=== PATIENT | male | born 1980 | race Caucasian/White ===

== ENCOUNTER 2023-07-28 11:48 | Outpatient (OUT) | payer OTHER, SELFPAY ==
--- NOTE | 2023-07-28 11:59 | XR_ITS ---
[address] [address] Patient Name: MAXIMILIANO GABRIEL MRN: [id number] date: 1980 Sex: M Assigned Patient Location: [facility] Current Patient Location: [facility] Accession/Order Number: [id number] Exam Date: 07/28/2023 12:00 Report Date: 07/28/2023 12:58 At the request of: DIVYA RICHARDSON Procedure: XR lumbar spine 2-3V EXAM: XR lumbar spine 2-3V HISTORY: Lumbar radiculitis M54.16 COMPARISON: None. TECHNIQUE: 2 views FINDINGS: Satisfactory alignment. Maintained vertebral body heights and disc spaces. No acute fracture or subluxation. Unremarkable soft tissues. XR/XR lumbar spine 2-3V IMPRESSION: Unremarkable exam. Electronically authenticated by: HUMAIRA CISNEROS Date: 07/28/2023 12:58
== END 2023-07-28 11:49 | disposition home or self-care (01) ==
PROVIDERS: PCP Family Medicine; Visit Provider Family Medicine
DX: M54.16 Radiculopathy, lumbar region (principal)
CPT/HCPCS: 72100

== ENCOUNTER 2023-08-03 19:23 | Emergency (ER) | payer OTHER, SELFPAY ==
[2023-08-03 19:33] VITALS: BP 136/99; PULSE 80; RESP 20; TEMP 36.8; O2SAT 96; BMI 40.7
--- NOTE | 2023-08-03 19:50 | PC.NURSE ---
left hip pain started approx 2 wks ago and has been seeing PCP for this but tonight pain is getting worse. denies injury and ambulates to room without difficulty
--- NOTE | 2023-08-03 19:58 | XR_ITS ---
The [address] [address] Patient Name: MAXIMILIANO GABRIEL MRN: [id number] date: 1980 Sex: M Assigned Patient Location: ER Current Patient Location: ER Accession/Order Number: [id number] Exam Date: 08/03/2023 20:44 Report Date: 08/03/2023 21:08 At the request of: KELLY CASTRO Procedure: XR hip LT 2V w/ pelvis EXAM: XR hip LT 2V w/ pelvis HISTORY: Lumbar radiculopathy, left hip pain COMPARISON: None. TECHNIQUE: AP pelvis and 2 views of the left hip FINDINGS: No fracture, dislocation, subluxation or osseous lesion. Joint spaces are normal. XR/XR hip LT 2V w/ pelvis IMPRESSION: No visualized abnormality Electronically authenticated by: MARIAMA SALGADO Date: 08/03/2023 21:08
--- NOTE | 2023-08-03 19:58 | CT_ITS ---
The [address] [address] Patient Name: MAXIMILIANO GABRIEL MRN: [id number] date: 1980 Sex: M Assigned Patient Location: ER Current Patient Location: ER Accession/Order Number: [id number] Exam Date: 08/03/2023 20:42 Report Date: 08/03/2023 21:08 At the request of: KELLY CASTRO Procedure: CT lumbar spine wo con EXAM: CT lumbar spine wo con HISTORY: lumbar radiculopathy COMPARISON: Lumbar spine x-rays 07/28/2023 TECHNIQUE: Axial CT imaging was performed. Sagittal and coronal reformatted/reconstructed sequences were additionally performed. FINDINGS: IMPRESSION: Maintenance of the normal lumbar lordosis. Vertebral body heights and alignments exhibit no fracture or listhesis. No prevertebral soft tissue edema. Intervertebral disc space heights are unremarkable for patient's age. Asymmetric L5-S1 annular bulge appears most pronounced extending from left paracentral to left far lateral. The superficial subcutaneous soft tissues are unremarkable. No visualized gross intra-abdominal abnormality. Visualized lung bases are unremarkable. Electronically authenticated by: MARIAMA SALGADO Date: 08/03/2023 21:08
--- NOTE | 2023-08-03 19:59 | ED.GENADUL1 ---
HPI - General Adult General Chief complaint: Extremity Injury, Lower Stated complaint: HIP PAIN RADIATING Time Seen by Provider: 08/03/23 19:48 Source: patient Mode of arrival: walk-in Limitations: no limitations History of Present Illness HPI narrative: patient is a 43-year-old male who presents to the emergency department for the evaluation of pain in the left posterior and lateral hip radiating into the left leg. He states he has had ongoing issues for several weeks. He was seen by his PCP who prescribed him anti-inflammatories and muscle relaxants. He has not had a dose of the Zanaflex since last night. He states he had outpatient x-rays of the low back last week as he was having low back pain. He states now the pain is in the hip with radiation to the leg and he has had tingling of the left hip as well as numbness of the left anterior fofana. He is able to ambulate. He has had no urinary or bowel incontinence. He denies any falls or direct injury to the area. Related Data Home Medications Medication Instructions Recorded Confirmed diclofenac sodium 75 mg 75 mg PO Q12H 08/03/23 08/03/23 tablet,delayed release tizanidine 4 mg capsule (Zanaflex) 4 mg PO BID PRN muscle spasticity 08/03/23 08/03/23 Previous Rx's Medication Instructions Recorded methocarbamol 750 mg tablet 750 mg PO TID PRN pain #20 tabs 08/03/23 methylprednisolone 4 mg tablets in See Rx Instructions .Route 08/03/23 a dose pack (Medrol (Dl)) .COMPLEX #21 ea oxycodone-acetaminophen 5 mg-325 1 tab PO Q6H PRN pain #12 tabs 08/03/23 mg tablet (Percocet) Allergies Allergy/AdvReac Type Severity Reaction Status Date / Time Sulfa (Sulfonamide Allergy Hives Verified 08/03/23 19:40 Antibiotics) Review of Systems ROS Constitutional Denies: fever or chills Respiratory Denies: shortness of breath Gastrointestinal Denies: abdominal pain, nausea or vomiting Musculoskeletal Reports: back pain and extremity pain; Denies: neck pain Integumentary/Breast Denies: rash Neurological Denies: headache Hematologic/Lymphatic Denies: easy bruising Allergic/Immunologic Denies: hives PFSH PFSH Social History Smoking status: Former smoker Exam Narrative Exam Narrative: Gen.: Awake, alert, in no distress Head: Normocephalic, atraumatic ENT: Moist mucous membranes Respiratory: No respiratory distress Extremities: Moves extremities equally, no injuries noted; normal dorsiflexion and plantarflexion of the lower extremities, no decrease in sensation to the medial thighs; no bony point tenderness of the T-spine or L-spine with diffuse tenderness of the left posterior and lateral hip. No internal or external rotation Psych: Normal mood and affect Neuro: No focal neuro deficit Skin: Warm, dry, intact Constitutional Vital Signs, click to edit/add: Last Vital Signs Temp 98.2 F 08/03/23 19:33 Pulse 80 08/03/23 19:33 Resp 20 08/03/23 19:33 BP 136/99 H 08/03/23 19:33 Pulse Ox 96 08/03/23 19:33 O2 Del Method Room Air 08/03/23 19:53 Course Vital Signs Vital signs: Vital Signs Temperature 98.2 F 08/03/23 19:33 Pulse Rate 80 08/03/23 19:33 Respiratory Rate 20 08/03/23 19:33 Blood Pressure 136/99 H 08/03/23 19:33 Pulse Oximetry 96 08/03/23 19:33 Temperature 98.2 F 08/03/23 19:33 Pulse Rate 80 08/03/23 19:33 Respiratory Rate 20 08/03/23 19:33 Blood Pressure 136/99 H 08/03/23 19:33 Pulse Oximetry 96 08/03/23 19:33 Oxygen Delivery Method Room Air 08/03/23 19:53 Medical Decision Making MDM Narrative Medical decision making narrative: x-rays of the left hip and pelvis are unremarkable per the radiologist. A CT of the lumbar spine was also performed as the patient is having lumbar radiculopathy. He is ambulatory, no decrease in sensation between the medial thighs with normal dorsiflexion and plantarflexion of the lower extremities. CT of the lumbar spine shows a patient has asymmetric disc bulging at L5/S1 which is likely contributing to his symptoms. There is no acute abnormality noted on the CT. Patient is neurovascularly intact with a normal neuro exam at discharge. He'll be medicated for symptoms, encouraged follow-up for physical therapy and follow closely with his PCP. Return to the Emergency Room if symptoms change or worsen Medical Records Medical records reviewed: Yes I reviewed the patient's medical records Discharge Plan Discharge Chief Complaint: Extremity Injury, Lower Clinical Impression: Acute left lumbar radiculopathy, Acute pain of left hip Patient Disposition: Home, Self-Care Time of Disposition Decision: 21:39 Condition: Good Prescriptions / Home Meds: New oxycodone-acetaminophen [Percocet] 5-325 mg tablet 1 tab PO Q6H PRN (Reason: pain) Qty: 12 0RF Rx Instructions: DX: M54.5 methocarbamol 750 mg tablet 750 mg PO TID PRN (Reason: pain) Qty: 20 0RF methylprednisolone [Medrol (Dl)] 4 mg tablets,dose pack See Rx Instructions .ROUTE .COMPLEX Qty: 21 0RF Rx Instructions: Taper as directed No Action diclofenac sodium 75 mg tablet,delayed release (DR/EC) 75 mg PO Q12H tizanidine [Zanaflex] 4 mg capsule 4 mg PO BID PRN (Reason: muscle spasticity) Instructions: Lumbar Radiculopathy (ED), Hip Pain (ED) Stand Alone Forms: Portal Instructions Referrals: Anil Meehan MD [Primary Care Provider] - 1 week Discharge Date/Time: 08/03/23 22:04
[2023-08-03] MEDS: ORPHENADRINE 60 MG/ 2 ML VIAL IM (20:31)
[2023-08-03] MEDS: KETOROLAC TROMETHAMINE 60 MG/2 ML VIAL IM (20:32)
[2023-08-03] MEDS: OXYCODONE HCL/ACETAMINOPHEN 5MG/325MG 1 TAB PO (20:32)
[2023-08-03] MEDS: OXYCODONE HCL/ACETAMINOPHEN 5MG/325MG 2 TAB PO (21:55)
== END 2023-08-03 22:04 | disposition home or self-care (01) ==
PROVIDERS: Emergency Provider Internal Medicine; PCP Family Medicine
DX: M54.16 Radiculopathy, lumbar region (principal); M25.552 Pain in left hip; Z79.899 Other long term (current) drug therapy; Z87.891 Personal history of nicotine dependence
CPT/HCPCS: 72131; 73502; 96372; 99285

== ENCOUNTER 2023-08-10 06:48 | Outpatient (RCR) | payer OTHER, SELFPAY | END 2023-09-18 15:11 | disposition home or self-care (01) | LOC: PT 06:48 | PROVIDERS: PCP Family Medicine; Visit Provider Family Medicine | DX: M54.16 Radiculopathy, lumbar region (principal) | CPT/HCPCS: 97110; 97161 ==

== ENCOUNTER 2023-12-01 12:12 | Outpatient (OUT) | payer OTHER, SELFPAY ==
--- OUTSIDE RECORDS SUMMARY | 2023-12-01 12:14 | XMS_ITS | CCD ---
Author Name Unknown Address [address] [facility] [place] [address] Organization [facility] Care Team Providers Care Automatic Engraver Name Role Phone Lelia Rouse APRN, CNP Primary Care Prov ider LELIA RIVAS Primary Care Physician Juan Antonio Joya DO Primary Care Provider [phone] LIAM RIVERA Referring Unavailable LIAM RIVERA Primary Care Unavailable LIAM RIVERA Primary Care Unavailable LIAM RIVERA Referring Unavailable JUAN ANTONIO JOYA Primary Care Unavailable NATHALIE FROST Attending Unavailable LELIA RIVAS Primary Care Unavailable VANI ROSA Admitting Unavailable VANI ROSA Attending Unavailable LIAM RIVERA Referring Unavailable DIVYA RICHARDSON Primary Care Unavailable LIAM RIVERA Attending Unavailable LIAM RIVERA Referring Unavailable LIAM RIVERA Primary Care Unavailable Allergies Allergy Classification Reported Allergen(s) Allergy Type Date of Onset Reaction(s) Facility (2 sources) Sulfonamides (Antibiotic) Propensity to adverse reactions to drug 8 [facility] (2 sources) Sulfonamides (Antibiotic); Translations: [sulfa drugs] Drug allergy Unknown (qualifier value) [facility] Medications Current Medications Medication Drug Class(es) Dates Sig (Normalized) Sig (Original) ciprofloxacin 500 mg oral tablet (2 sources) Quinolone Antimicrobial Start: 06-23-2022 take 1 tablet by mouth twice daily Cipro 500 mg Tab 500 mg = 1 tab(s), Oral, BID, # 10 tab(s), Refills(s) 0, Pharmacy: [id number], 184, cm, 06/23/22 10:35:00 EDT, Height/Length Dosing, 144, kg, 06/23/22 10:35:00 EDT, Weight Dosing Start Date: 06/23/22 Status: Ordered Multiple Vitamins-Minerals (MULTIVITAMIN ADULT PO) (2 sources) Multiple Vitamins-Minerals (MULTIVITAMIN ADULT PO) Take by mouth daily 0 Active Multivitamin preparation (2 sources) Start: 06-23-2022 multivitamin Daily, Refill(s) 0 Start Date: 06/23/22 Status: Ordered Problems Active Problems Problem Classification Problem Date Documented Date Episodic/Chronic Contraceptive and procreative management (1 source) Contraception status; Translations: [Encounter for other general counseling and advice on contraception] Onset: 06-23-2022 Episodic Other male genital disorders (1 source) Left testicular pain; Translations: [Left testicular pain] Onset: 07-23-2023 Episodic Other nutritional; endocrine; and metabolic disorders (3 sources) Body mass index 40+ - severely obese; Translations: [Body mass index (BMI) 40.0-44.9, adult] Onset: 06-23-2022 Chronic Other screening for suspected conditions (not mental disorders or infectious disease) (3 sources) Patient encounter status; Translations: [Encounter for screening for lipoid disorders] Onset: 03-05-2023 Episodic Sprains and strains (2 sources) Sprain of left ankle; Translations: [Sprain of unspecified ligament of left ankle, initial encounter] Onset: 06-07-2023 Episodic Unclassified (2 sources) Patient encounter status 06-23-2022 Unclassified (1 source) Low back pain, unspecified; Translations: [Low back pain, unspecified] Onset: 07-23-2023 Past or Other Problems Problem Classification Problem Date Documented Da te Episodic/Chronic Anxiety disorders (2 sources) Generalized anxiety disorder; Translations: [Generalized anxiety disorder] Onset: 09-02-2018 Resolved: 05-22-2022 05-22-2022 Chronic Residual codes; unclassified (2 sources) Family history of cancer of colon; Translations: [Family history of malignant neoplasm of digestive organs] Onset: 05-22-2022 05-22-2022 Episodic Results Test Name Value Interpretation Reference Range Facility US RENAL COMPLETEon 07-24-20 US RENAL COMPLETE EXAM: US RENAL COMPLETE HISTORY: Acute left-sided low back pain without sciatica COMPARISON: None. FINDINGS: No hydronephrosis. Right kidney: 10.7 x 5.0 x 6.4 cm with cortical thickness 15 mm. Left kidney: 11.3 x 6.1 x 5.3 cm with cortical thickness 16 mm. Normal renal echogenicity. Bladder contour normal. Both ureteral jets are identified. IMPRESSION: No hydronephrosis or mass. Interpreted by: Silvano Tyson Jr., MD Signed by: Silvano Tyson Jr., MD 07/24/23 Final result Normal [facility] Basic Metabolic Profon 07-23 Anion gap [Moles/Vol] 10 mmol/L Normal 07-19 [facility] Comment on above: Performed By: #### B MILAGRO, CDP #### [facility] [address] [place], [place] [id number] Resident Care Aid: Dillon Anderson MD BUN/CRE Ratio 15 Normal 07-22 [facility] Comment on above: Performed By: #### B MILAGRO, CDP #### [facility] [address] [place] [address] Resident Care Aid: Dillon Anderson MD Calcium [Mass/Vol] 9.6 mg/dL Normal 8.6-10.4 [facility] Comment on above: Performed By: #### B MILAGRO, CDP #### [facility] [address] [place] [address] Resident Care Aid: Dillon Anderson MD Chloride [Moles/Vol] 101 mmol/L Normal 98-107 [facility] Comment on above: Performed By: #### B MILAGRO, CDP #### [facility] [address] [place], [place] [id number] Resident Care Aid: Dillon Anderson MD CO2 [Moles/Vol] 22 mmol/L Normal 20-31 [facility] Comment on above: Performed By: #### B MILAGRO, CDP #### [facility] [address] [place], [place] [id number] Resident Care Aid: Dillon Anderson MD Creatinine [Mass/Vol] 0.8 mg/dL Normal 0.7-1.2 [facility] Comment on above: Performed By: #### B MILAGRO, CDP #### [facility] [address] [place], [place] [id number] Resident Care Aid: Dillon Anderson MD GFR/1.73 sq M.predicted among non-blacks MDRD (S/P/Bld) [Vol rate/Area] mL/min/{1.73_m2} Normal >60 [facility] Comment on above: Result Comment: These results are not intended for use in patients <18 years of age. eGFR results are calculated without a race factor using the 2020 CKD-EPI equation. Careful clinical correlation is recommended, particularly when comparing to results calculated using previous equations. The CKD-EPI equation is less accurate in patients with extremes of muscle mass, extra-renal metabolism of creatine, excessive creatine ingestion, or following therapy that affects renal tubular secretion. Performed By: #### B MILAGRO, CDP #### [facility] [address] [place], [place] [id number] Resident Care Aid: Dillon Anderson MD Glucose [Mass/Vol] 98 mg/dL Normal 70-99 [facility] Comment on above: Performed By: #### B MILAGRO, CDP #### [facility] [address] [place], [place] [id number] Resident Care Aid: Dillon Anderson MD Potassium [Moles/Vol] 4.1 mmol/L Normal 3.7-5.3 [facility] Comment on above: Performed By: #### B MILAGRO, CDP #### [facility] [address] [place], [place] [id number] Resident Care Aid: Dillon Anderson MD Sodium [Moles/Vol] 133 mmol/L Low 135-144 [facility] Comment on above: Performed By: #### B MILAGRO, CDP #### [facility] [address] [place], [place] [id number] Resident Care Aid: Dillon Anderson MD Urea nitrogen [Mass/Vol] 12 mg/dL Normal 6-20 [facility] Comment on above: Performed By: #### B MP, CDP #### [facility] [address] [place], [place] [id number] Resident Care Aid: Dillon Anderson MD CBC with Diffon 07-23-2023 Abs. Basophil 0.03 k/uL Normal 0.00-0.20 [facility] Comment on above: Performed By: #### B MP, CDP #### [facility] [address] [place] [address] Resident Care Aid: Dillon Anderson MD Abs.Imm.Granulocyte 0.01 k/uL Normal 0.00-0.30 [facility] Comment on above: Performed By: #### B MILAGRO, CDP #### [facility] [address] [place], [place] 7896[address] Resident Care Aid: Dillon Anderson MD Abs.Neutrophil (Seg) 3.04 k/uL Normal 2.1-6.5 [facility] Comment on above: Performed By: #### B MP, CDP #### [facility] [address] [place], [place] [id number] Resident Care Aid: Dillon Anderson MD Basophils/100 WBC (Bld) 1 % Normal 0-2 [facility] Comment on above: Performed By: #### B MP, CDP #### [facility] [address] [place], [place] [id number] Resident Care Aid: Dillon Anderson MD Eosinophils (Bld) [#/Vol] 0.22 10*3/uL Normal 0.00-0.40 [facility] Comment on above: Performed By: #### B MP, CDP #### [facility] [address] [place] [address] Resident Care Aid: Dillon Anderson MD Eosinophils/100 WBC (Bld) 4 % Normal 0-5 [facility] Comment on above: Performed By: #### B MP, CDP #### [facility] [address] [place], [place] [phone] ([phone]) Resident Care Aid: Dillon Anderson MD Immature granulocytes/100 WBC (Bld) 0 % Normal 0-5 [facility] Comment on above: Performed By: #### B MP, CDP #### [facility] [address] [place] [address] Resident Care Aid: Dillon Anderson MD Lymphocytes (Bld) [#/Vol] 2.37 10*3/uL Normal 1.00-4.80 [facility] Comment on above: Performed By: #### B MILAGRO, CDP #### [facility] [address] [place] [address] Resident Care Aid: Dillon Anderson MD Lymphocytes/100 WBC (Bld) 38 % Normal 13-44 [facility] Comment on above: Performed By: #### B MILAGRO, CDP #### [facility] [address] [place] [address] Resident Care Aid: Dillon Anderson MD Monocytes (Bld) [#/Vol] 0.52 10*3/uL Normal 0.00-1.00 [facility] Comment on above: Performed By: #### B MP, CDP #### [facility] [address] [place] [address] Resident Care Aid: Dillon Anderson MD Monocytes/100 WBC (Bld) 8 % Normal 5-9 [facility] Comment on above: Performed By: #### B MP, CDP #### [facility] [address] [place], [place] [id number] ([phone]) Resident Care Aid: Dillon Anderson MD Neutrophil (Seg) 49 % Normal 39-75 [facility] Comment on above: Performed By: #### B MP, CDP #### [facility] [address] [place] [address] Resident Care Aid: Dillon Anderson MD Erythrocyte distribution width (RBC) [Ratio] 12.7 % Normal 12.1-15.2 [facility] Comment on above: Performed By: #### B MP, CDP #### [facility] [address] [place] [address] Resident Care Aid: Dillon Anderson MD Hematocrit (Bld) [Volume fraction] 43.9 % Normal 41.0-53.0 [facility] Comment on above: Performed By: #### B MP, CDP #### [facility] [address] [place] [address] Resident Care Aid: Dillon Anderson MD Hemoglobin (Bld) [Mass/Vol] 15.6 g/dL Normal 13.5-17.5 [facility] Comment on above: Performed By: #### B MILAGRO, CDP #### [facility] [address] [place] [address] Resident Care Aid: Dillon Anderson MD MCH (RBC) [Entitic mass] 30.4 pg Normal 26.0-34.0 [facility] Comment on above: Performed By: #### B MILAGRO, CDP #### [facility] [address] [place] [address] Resident Care Aid: Dillon Anderson MD MCHC (RBC) [Mass/Vol] 35.5 g/dL Normal 31.0-37.0 [facility] Comment on above: Performed By: #### B MP, CDP #### [facility] [address] [place] [address] Resident Care Aid: Dillon Anderson MD MCV (RBC) [Entitic vol] 85.6 fL Normal 80.0-100.0 [facility] Comment on above: Performed By: #### B MP, CDP #### [facility] [address] [place], [place] [id number] (390) Resident Care Aid: Dillon Anderson MD Platelet mean volume (Bld) [Entitic vol] 8.9 fL Normal 6.0-12.0 [facility] Comment on above: Performed By: #### B MP, CDP #### [facility] [address] [place], [place] [id number] (244) Resident Care Aid: Dillon Anderson MD Platelets (Bld) [#/Vol] 327 10*3/uL Normal 140-450 [facility] Comment on above: Performed By: #### B MP, CDP #### [facility] [address] [place], [place] [phone] (821) Resident Care Aid: Dillon Anderson MD RBC (Bld) [#/Vol] 5.13 10*6/uL Normal 4.50-5.90 [facility] Comment on above: Performed By: #### Jenny HUMPHREY, CDP #### [facility] [address] [place] [address] Resident Care Aid: Dillon Anderson MD WBC (Bld) [#/Vol] 6.2 10*3/uL Normal 3.5-11.0 [facility] Comment on above: Performed By: #### B MILAGRO, CDP #### [facility] [address] [place] [address] Resident Care Aid: Dillon Anderson MD Lipid Profileon 06-16-2023 Cholesterol [Mass/Vol] 207 mg/dL High <200 [facility] Comment on above: Result Comment: Cholesterol Guidelines: <200 Desirable 200-240 Borderline >240 Undesirable Performed By: #### Z JYOTSNA GODINEZ, BMP #### [facility] [address] [place] [address] Resident Care Aid: Dillon Anderson MD #### LIPR #### [address] [place] [address] Resident Care Aid: Jass Gan MD Cholesterol in HDL [Mass/Vol] 37 mg/dL Low >40 [facility] Comment on above: Result Comment: HDL Guidelines: <40 Undesirable 40-59 Borderline >59 Desirable Performed By: #### JYOTSNA SANCHEZ, BMP #### [facility] [address] [place], [place] [phone] Resident Care Aid: Dillon Anderson MD #### LIPR #### [facility] [place], [place] [phone] Resident Care Aid: Jass Gan MD Cholesterol in LDL [Mass/Vol] 115 mg/dL Normal 0-130 [facility] Comment on above: Result Comment: LDL Guidelines: <100 Desirable 100-129 Near to/above Desirable 130-159 Borderline >159 Undesirable Direct (measured) LDL and calculated LDL are not interchangeable tests. Performed By: #### JYOTSNA SANCHEZ, BMP #### [facility] [address] [place], [place] [id number] Resident Care Aid: Dillon Anderson MD #### LIPR #### [facility] [address] [place] [address] [id number] Resident Care Aid: Jass Gan MD Cholesterol.total/C holesterol in HDL [Mass ratio] 5.6 {ratio} High <5 [facility] Comment on above: Performed By: #### JYOTSNA SANCHEZ, BMP #### [facility] [address] [place], [place] [id number] Resident Care Aid: Dillon Anderson MD #### LIPR #### [facility] [place], [place] [id number] Resident Care Aid: Jass Gan MD Triglyceride [Mass/Vol] 277 mg/dL High <150 [facility] Comment on above: Result Comment: Triglyceride Guidelines: <150 Desirable 150-199 Borderline 200-499 High >499 Very high Based on AHA Guidelines for fasting triglyceride, August 2012. Performed By: #### JYOTSNA SANCHEZ, BMP #### [facility] [address] [place], [place] [phone] Resident Care Aid: Dillon Anderson MD #### LIPR #### [address] [id number] Resident Care Aid: Jass Gan MD Basic Metabolic Profon 06-15 Anion gap [Moles/Vol] 12 mmol/L Normal 8-16 [facility] Comment on above: Performed By: #### Farhat FAST, CDP, BMP #### [facility] [address] [place], [place] [id number] Resident Care Aid: Dillon Anderson MD #### LIPR #### [address] [id number] Resident Care Aid: Jass Gan MD BUN/CRE Ratio 15 Normal 9-20 [facility] Comment on above: Performed By: #### Farhat FAST, CDP, BMP #### [facility] [address] [place], [place] [id number] Resident Care Aid: Dillon Anderson MD #### LIPR #### [address] [id number] Resident Care Aid: Jass Gan MD Calcium [Mass/Vol] 9.8 mg/dL Normal 8.6-10.4 [facility] Comment on above: Performed By: #### Farhat FAST, CDP, BMP #### [facility] [address] [place], [place] [id number] Resident Care Aid: Dillon Anderson MD #### LIPR #### [address] [phone] Resident Care Aid: Jass Gan MD Chloride [Moles/Vol] 100 mmol/L Normal 98-107 [facility] Comment on above: Performed By: #### Farhat FAST, CDP, BMP #### [facility] [address] [place], [place] [address]39[address] Resident Care Aid: Dillon Anderson MD #### LIPR #### [facility] [address] [place], [place] [id number] Resident Care Aid: Jass Gan MD CO2 [Moles/Vol] 24 mmol/L Normal 20-31 [facility] Comment on above: Performed By: #### Z FAST, CDP, BMP #### [facility] [address] [place] [address] Resident Care Aid: Dillon Anderson MD #### LIPR #### [address] [address] Resident Care Aid: Jass Gan MD Creatinine [Mass/Vol] 0.8 mg/dL Normal 0.7-1.2 [facility] Comment on above: Performed By: #### Farhat FAST, CDP, BMP #### [facility] [address] [place], [place] 0834390 Resident Care Aid: Dillon Anderson MD #### LIPR #### [address] [id number] Resident Care Aid: Jass Gan MD GFR/1.73 sq M.predicted among non-blacks MDRD (S/P/Bld) [Vol rate/Area] mL/min/{1.73_m2} Normal >60 [facility] Comment on above: Result Comment: These results are not intended for use in patients <18 years of age. eGFR results are calculated without a race factor using the 2020 CKD-EPI equation. Careful clinical correlation is recommended, particularly when comparing to results calculated using previous equations. The CKD-EPI equation is less accurate in patients with extremes of muscle mass, extra-renal metabolism of creatine, excessive creatine ingestion, or following therapy that affects renal tubular secretion. Performed By: #### Z FAST, CDP, BMP #### [facility] [address] [place], [place] [address] Resident Care Aid: Dillon Anderson MD #### LIPR #### [address] [id number] Resident Care Aid: Jass Gan MD Glucose [Mass/Vol] 167 mg/dL High 70-99 [facility] Comment on above: Performed By: #### Farhat FAST CDP, BMP #### [facility] [address] [place] [address] Resident Care Aid: Dillon Anderson MD #### LIPR #### [facility] [address] [place], [place] 3426[address] Resident Care Aid: Jass Gan MD Potassium [Moles/Vol] 3.8 mmol/L Normal 3.7-5.3 [facility] Comment on above: Performed By: #### Farhat GODINEZ CDP, BMP #### [facility] [address] [place], [place] [id number] Resident Care Aid: Dillon Anderson MD #### LIPR #### [address] [id number] Resident Care Aid: Jass Gan MD Sodium [Moles/Vol] 136 mmol/L Normal 135-144 [facility] Comment on above: Performed By: #### Farhat GODINEZ CDP, BMP #### [facility] [address] [place] [address] Resident Care Aid: Dillon Anderson MD #### LIPR #### [facility] [address] [place], [place] 7865[address] Resident Care Aid: Jass Gan MD Urea nitrogen [Mass/Vol] 12 mg/dL Normal 6-20 [facility] Comment on above: Performed By: #### Farhat FAST CDP, BMP #### [facility] [address] [place] [address] Resident Care Aid: Dillon Anderson MD #### LIPR #### [address] [phone] Resident Care Aid: Jass Gan MD CBC with Diffon 08-14-2023 Abs. Basophil Normal 0.0-0.2 [facility] Comment on above: Performed By: #### Farhat GODINEZ CDP, BMP #### [facility] [address] [place], [place] [phone] Resident Care Aid: Dillon Anderson MD #### LIPR #### [address] [address] Resident Care Aid: Jass Gan MD Abs.Neutrophil (Seg) 5.01 k/uL Normal 2.1-6.5 [facility] Comment on above: Performed By: #### Farhat GODINEZ CDP, BMP #### [facility] [address] [place], [place] [id number] Resident Care Aid: Dillon Anderson MD #### LIPR #### [place] [address] Resident Care Aid: Jass Gan MD Basophil Normal 0-2 [facility] Comment on above: Performed By: #### Farhat GODINEZ CDP, BMP #### [facility] [address] [place] [address] Resident Care Aid: Dillon Anderson MD #### LIPR #### [address] [address] Resident Care Aid: Jass Gan MD Eosinophils (Bld) [#/Vol] 0.34 10*3/uL Normal 0.0-0.4 [facility] Comment on above: Performed By: #### Farhat FAST CDP, BMP #### [facility] [address] [place] [address] Resident Care Aid: Dillon Anderson MD #### LIPR #### [address] [address] Resident Care Aid: Jass Gan MD Eosinophils/100 WBC (Bld) 4 % Normal 0-5 [facility] Comment on above: Performed By: #### Z FAST, CDP, BMP #### [facility] [address] [place], [place] [address] Resident Care Aid: Dillon Anderson MD #### LIPR #### [facility] [address] [place], [place] 3944508 Resident Care Aid: Jass Gan MD Lymphocytes (Bld) [#/Vol] 2.81 10*3/uL Normal 1.0-4.8 [facility] Comment on above: Performed By: #### Z FAST, CDP, BMP #### [facility] [address] [place] [address] Resident Care Aid: Dillon Anderson MD #### LIPR #### [address] [phone] Resident Care Aid: Jass Gan MD Lymphocytes/100 WBC (Bld) 33 % Normal 13-44 [facility] Comment on above: Performed By: #### Z FAST, CDP, BMP #### [facility] [address] [place], [place] 438[address] Resident Care Aid: Dillon Anderson MD #### LIPR #### [address] [address] Resident Care Aid: Jass Gan MD Monocytes (Bld) [#/Vol] 0.34 10*3/uL Normal 0.0-1.0 [facility] Comment on above: Performed By: #### Z FAST, CDP, BMP #### [facility] [address] [place], [place] 1684[address] Resident Care Aid: Dillon Anderson MD #### LIPR #### [address] [id number] Resident Care Aid: Jass Gan MD Monocytes/100 WBC (Bld) 4 % Low 5-9 [facility] Comment on above: Performed By: #### Farhat FAST, CDP, BMP #### [facility] [address] [place], [place] [address] Resident Care Aid: Dillon Anderson MD #### LIPR #### [address] [phone] Resident Care Aid: Jass Gan MD Morphology Mejia (Bld) [Interp] Manual Differential Performed Normal [facility] Comment on above: Result Comment: RBC morphology normal. Platelet morphology normal. Performed By: #### Farhat FAST, CDP, BMP #### [facility] [address] [place], [place] [phone] Resident Care Aid: Dillon Anderson MD #### LIPR #### [address] [phone] Resident Care Aid: Jass Gan MD Neutrophil (Seg) 59 % Normal 39-75 [facility] Comment on above: Performed By: #### Farhat FAST, CDP, BMP #### [facility] [address] [place], [place] 7189190 Resident Care Aid: Dillon Anderson MD #### LIPR #### [facility] [address] [place] [id number] Resident Care Aid: Jass Gan MD Erythrocyte distribution width (RBC) [Ratio] 13.1 % Normal 12.1-15.2 [facility] Comment on above: Performed By: #### Farhat FAST, CDP, BMP #### [facility] [address] [place], [place] 6441590 Resident Care Aid: Dillon Anderson MD #### LIPR #### [address] [address] Resident Care Aid: Jass Gan MD Hematocrit (Bld) [Volume fraction] 44.8 % Normal 41-53 [facility] Comment on above: Performed By: #### Farhat FAST, CDP, BMP #### [facility] [address] [place], [place] [phone] Resident Care Aid: Dillon Anderson MD #### LIPR #### [facility] [address] [place], [place] 7444808 Resident Care Aid: Jass Gan MD Hemoglobin (Bld) [Mass/Vol] 15.5 g/dL Normal 13.5-17.5 [facility] Comment on above: Performed By: #### Farhat GODINEZ CDP, BMP #### [facility] [address] [place], [place] 9415190 Resident Care Aid: Dillon Anderson MD #### LIPR #### [address] [place], [place] [id number] Resident Care Aid: Jass Gan MD MCH (RBC) [Entitic mass] 31.1 pg Normal 26-34 [facility] Comment on above: Performed By: #### Farhat GODINEZ CDP, BMP #### [facility] [address] [place], [place] 16[address] Resident Care Aid: Dillon Anderson MD #### LIPR #### [address] [phone] Resident Care Aid: Jass Gan MD MCHC (RBC) [Mass/Vol] 34.5 g/dL Normal 31-37 [facility] Comment on above: Performed By: #### Farhat GODINEZ CDP, BMP #### [facility] [address] [place], [place] 2304290 Resident Care Aid: Dillon Anderson MD #### LIPR #### [address] [phone] Resident Care Aid: Jass Gan MD MCV (RBC) [Entitic vol] 90.0 fL Normal 80-100 [facility] Comment on above: Performed By: #### Farhat GODINEZ CDP, BMP #### [facility] [address] [place], [place] [id number] Resident Care Aid: Dillon Anderson MD #### LIPR #### [address] [place], [place] 0304408 Resident Care Aid: Jass Gan MD Platelets (Bld) [#/Vol] 370 10*3/uL Normal 140-450 [facility] Comment on above: Performed By: #### Farhat FAST CDP, BMP #### [facility] [address] [place], [place] [phone] Resident Care Aid: Dillon Anderson MD #### LIPR #### [address] [id number] Resident Care Aid: Jass Gan MD RBC (Bld) [#/Vol] 4.98 10*6/uL Normal 4.5-5.9 [facility] Comment on above: Performed By: #### Farhat GODINEZ CDP, BMP #### [facility] [address] [place], [place] [phone] Resident Care Aid: Dillon Anderson MD #### LIPR #### [address] [phone] Resident Care Aid: Jass Gan MD WBC (Bld) [#/Vol] 8.5 10*3/uL Normal 3.5-11.0 [facility] Comment on above: Performed By: #### Farhat FAST, CDP, BMP #### [facility] [address] [place], [place] 6[address] Resident Care Aid: Dillon Anderson MD #### LIPR #### [address] [id number] Resident Care Aid: Jass Gan MD Patient fasting?on 3 Patient fasting? NO Normal [facility] Comment on above: Performed By: #### Farhat FAST CDP, BMP #### [facility] [address] [place] [address] Resident Care Aid: Dillon Anderson MD #### LIPR #### [facility] [place] [address] Resident Care Aid: Jass Gan MD XR ANKLE LEFT (MIN 3 VIEWS)o n 06-07-2023 XR ANKLE LEFT (MIN 3 VIEWS) IMAGES REVIEWED: XR ANKLE LEFT (MIN 3 VIEWS) COMPARISON: None available. CLINICAL INDICATION: rolled left ankle IMPRESSION: FINDINGS/IMPRESSION: 1. No displaced fracture or dislocation. 2. Questionable transverse lucency in the distal fibula in the region of the physeal scar without cortical step-off. Adjacent mild lateral ankle soft tissue swelling. 3. Trace subchondral lucency in the medial talar dome on the frontal view, questionable trace osteochondral lesion. 4. Trace questionable periarticular bony erosive change involving the fifth TMT joint, questionable gout. Interpreted by: Moose Peterson MD Signed by: Moose Peterson MD 06/07/23 Final result Normal [facility] FINDINGS/IMPRESSION: 1. No displaced fracture or dislocation. 2. Questionable transverse lucency in the distal fibula in the region of the physeal scar without cortical step-off. Adjacent mild lateral ankle soft tissue swelling. 3. Trace subchondral lucency in the medial talar dome on the frontal view, questionable trace osteochondral lesion. 4. Trace questionable periarticular bony erosive change involving the fifth TMT joint, questionable gout. [facility] RIS CONSOLIDATED IMAGES REVIEWED: XR ANKLE LEFT (MIN 3 VIEWS) COMPARISON: None available. CLINICAL INDICATION: rolled left ankle [facility] Moose Peterson MD - 06/07/2023 IMAGES REVIEWED: XR ANKLE LEFT (MIN 3 VIEWS) COMPARISON: None available. CLINICAL INDICATION: rolled left ankle IMPRESSION: FINDINGS/IMPRESSION: 1. No displaced fracture or dislocation. 2. Questionable transverse lucency in the distal fibula in the region of the physeal scar without cortical step-off. Adjacent mild lateral ankle soft tissue swelling. 3. Trace subchondral lucency in the medial talar dome on the frontal view, questionable trace osteochondral lesion. 4. Trace questionable periarticular bony erosive change involving the fifth TMT joint, questionable gout. [facility] Radiology Study observation (narrative) RANJIT ORTEGA [facility] XR ANKLE LEFT (MIN 3 VIEWS)O rdered By: Moose Nixonz on 06-07-2023 RANJIT ORTEGA [facility] Work Phone: Surgical Pathologyon 023 Surgical Pathology (NOTE) Path Number: [id number] -- Diagnosis -- Rectum, colonoscopic polypectomy: Fragments of tubular adenoma. Austin Franco Electronically Signed Out 03/09/2023 Clinical Information Pre-op Diagnosis: COLON CANCER SCREENING Operative Findings: RECTAL POLYP Operation Performed: COLONOSCOPY, POLYPECTOMY SNARE/COLD BIOPSY tm Source of Specimen A: RECTAL POLYP Gross Description SKYLER GABRIEL RECTAL POLYP Received in formalin are two ballard-white tissue fragments from 0.3 to 0.5 cm and are 0.8 x 0.3 x 0.3 cm in aggregate. Entirely 1cs. mm tm Microscopic Description 2 TRAVIS reviewed. Microscopic examination performed. Processing Lab: [address] [id number] Interpretation Performed at [place] [id number] SURGICAL PATHOLOGY CONSULTATION Patient Name: SKYLER GABRIEL [facility] Rec: [id number] [facility] [employer] [facility] ANATOMIC PATHOLOGY [address] [place], [place] [address] [facility] Comment on above: Performed By: #### P PPVS #### [facility] [address] [place], [place] [id number] Resident Care Aid: Jass Gan MD [employer]son 06-26-2022 Forms [id number] #1.00CD:127 Normal [facility] Physician Referralon 022 Physician Referral [id number]# 1.00CD:127 Normal [facility] Ambulatory Visit Summaryon 0 06-23-2022 Ambulatory Visit Summary SKYLER GABRIEL :1980 Visit Date:06/23/2022 Ambulatory Visit Instructions Your Diagnosis Vasectomy evaluation BMI 40.0-44.9, adult Tests Performed Urnls Dip Stick Auto w/o Microscopy POC [address]450 Your Care Team Attending Physician - Quincy BALBUENA MD Primary Care Physician - LELIA RIVAS CNP Referring Physician - LELIA RIVAS CNP This Is Your Medications List ciprofloxacin (Cipro 500 mg Tab) Contact prescribing physician if questions or concerns multivitamin Discharge Vitals Heart Rate (Peripheral) 88 Respiratory Rate 16 Blood Pressure 121/82 Height 184.0 cm Height 184 cm Weight 144.0 kg Weight 144 kg BMI 42.53 What to do next You Need to Schedule the Following Appointments Follow Up with ALBERT BAE, CONCHA Corey When: Where: [address] [place] [id number] Business (1) Medications What How Much When Instructions New ciprofloxacin (Cipro 500 mg Tab) 1 Tablets By Mouth 2 times a day Pickup at [facility] Unchanged multivitamin Every day Contact prescribing physician if questions or concerns Pharmacy Information [facility]: [address], [place] [id number] [phone] Test Results Urnls Dip Stick Auto w/o Microscopy POC 47255 (06/23/2022) Bilirubin Urine Dipstick - Negative Blood Urine Dipstick - Negative Glucose Urine Dipstick - Negative Ketones Urine Dipstick - Negative Leukocytes Urine Dipstick - Negative Nitrite Urine Dipstick - Negative Protein Urine Dipstick - Negative Specific Clayton Urine Dipstick - <=1.005 Urine Appearance Urine Dipstick - Clear Urine Color Urine Dipstick - Yellow Urobilinogen Urine Dipstick - Normal 0.2-1 EU/dl pH Urine Dipstick - 6 Allergies sulfa drugs (Unknown) Problems Ongoing - Any problem that you are currently receiving treatment for. BMI 40.0-44.9, adult Vasectomy evaluation Education Materials Vasectomy, Care After This sheet gives you information about how to care for yourself after your procedure. Your health care provider may also give you more specific instructions. If you have problems or questions, contact your health care provider. What can I expect after the procedure? After your procedure, it is common to have: ? Mild pain, swelling, redness, or discomfort in your scrotum. ? Some blood coming from your incisions or puncture sites for one or two days. ? Blood in your semen. Follow these instructions at home: Medicines ? Take ewnh-ymb-rdkyfwn and prescription medicines only as told by your health care provider. ? Avoid taking NSAIDs such as aspirin and ibuprofen, because these medicines can make bleeding worse. Activity ? For the first 2 days after surgery, avoid physical activity and exercise that require a lot of energy. Ask your health care provider what activities are safe for you. ? Do not participate in sports or perform heavy physical labor until your pain has improved, or until your health care provider says it is okay. ? Do not ejaculate for at least 1 week after the procedure, or as long as directed. ? You may resume sexual activity 7?10 days after your procedure, or when your health care provider approves. Use a different method of control (contraception) until you have had test results that confirm that there is no sperm in your semen. Scrotal support ? Use scrotal support, such as a jock strap or underwear with a supportive pouch, as needed for one week after your procedure. ? If you feel discomfort in your scrotum, you may remove the scrotal support to see if the discomfort is relieved. Sometimes scrotal support can press on the scrotum and cause or worsen discomfort. ? If your skin gets irritated, you may add some germ-free (sterile), fluffed bandages or a clean washcloth to the scrotal support. General instructions ? Put ice on the injured area: ? Put ice in a plastic bag. ? Place a towel between your skin and the bag. ? Leave the ice on for 20 minutes, 2?3 times a day. ? Check your incisions or puncture sites every day for signs of infection. Check for: ? Redness, swelling, or pain. ? Fluid or blood. ? Warmth. ? Pus or a bad smell. ? Leave stitches (sutures) in place. The sutures will dissolve on their own and do not need to be removed. ? Keep all follow-up visits as told by your health care provider. This is important because you will need a test to confirm that there is no sperm in your semen. Multiple ejaculations are needed to clear out sperm that were beyond the vasectomy site. You will need one test result showing that there is no sperm in your semen before you can resume unprotected sex. This may take 2?4 months after your procedure. ? Do not drive for 24 hours if you were given a sedative to help you relax. Contact a health care pro (more content not included)... [facility] Patient Educationon 06-23-20 Patient Education Nutrition Calorie Counting for Weight Loss Calories are units of energy. Your body needs a certain amount of calories from food to keep you going throughout the day. When you eat more calories than your body needs, your body stores the extra calories as fat. When you eat fewer calories than your body needs, your body willoughby fat to get the energy it needs. Calorie counting means keeping track of how many calories you eat and drink each day. Calorie counting can be helpful if you need to lose weight. If you make sure to eat fewer calories than your body needs, you should lose weight. Ask your health care provider what a healthy weight is for you. For calorie counting to work, you will need to eat the right number of calories in a day in order to lose a healthy amount of weight per week. A dietitian can help you determine how many calories you need in a day and will give you suggestions on how to reach your calorie goal. ? A healthy amount of weight to lose per week is usually 1?2 lb (0.5?0.9 kg). This usually means that your daily calorie intake should be reduced by 500?750 calories. ? Eating 1,200 ? 1,500 calories per day can help most women lose weight. ? Eating 1,500 ? 1,800 calories per day can help most men lose weight. What is my plan? My goal is to have calories per day. If I have this many calories per day, I should lose around pounds per week. What do I need to know about calorie counting? In order to meet your daily calorie goal, you will need to: ? Find out how many calories are in each food you would like to eat. Try to do this before you eat. ? Decide how much of the food you plan to eat. ? Write down what you ate and how many calories it had. Doing this is called keeping a food log. To successfully lose weight, it is important to balance calorie counting with a healthy lifestyle that includes regular activity. Aim for 150 minutes of moderate exercise (such as walking) or 75 minutes of vigorous exercise (such as running) each week. Where do I find calorie information? The number of calories in a food can be found on a Nutrition Facts label. If a food does not have a Nutrition Facts label, try to look up the calories online or ask your dietitian for help. Remember that calories are listed per serving. If you choose to have more than one serving of a food, you will have to multiply the calories per serving by the amount of servings you plan to eat. For example, the label on a package of bread might say that a serving size is 1 slice and that there are 90 calories in a serving. If you eat 1 slice, you will have eaten 90 calories. If you eat 2 slices, you will have eaten 180 calories. How do I keep a food log? Immediately after each meal, record the following information in your food log: ? What you ate. Don't forget to include toppings, sauces, and other extras on the food. ? How much you ate. This can be measured in cups, ounces, or number of items. ? How many calories each food and drink had. ? The total number of calories in the meal. Keep your food log near you, such as in a small notebook in your pocket, or use a mobile travis or website. Some programs will calculate calories for you and show you how many calories you have left for the day to meet your goal. What are some calorie counting tips? ? Use your calories on foods and drinks that will fill you up and not leave you hungry: ? Some examples of foods that fill you up are nuts and nut butters, vegetables, lean proteins, and high-fiber foods like whole grains. High-fiber foods are foods with more than 5 g fiber per serving. ? Drinks such as sodas, specialty coffee drinks, alcohol, and juices have a lot of calories, yet do not fill you up. ? Eat nutritious foods and avoid empty calories. Empty calories are calories you get from foods or beverages that do not have many vitamins or protein, such as candy, sweets, and soda. It is better to have a nutritious high-calorie food (such as an avocado) than a food with few nutrients (such as a bag of chips). ? Know how many calories are in the foods you eat most often. This will help you calculate calorie counts faster. ? Pay attention to calories in drinks. Low-calorie drinks include water and unsweetened drinks. ? Pay attention to nutrition labels for low fat or fat free foods. These foods sometimes have the same amount of calories or more calories than the full fat versions. They also often have added sugar, starch, or salt, to make up for flavor that was removed with the fat. ? Find a way of tracking calories that works for you. Get creative. Try different apps or programs if writing down calories does not work for you. What are some portion control tips? ? Know how many calories are in a serving. This will help you know how many servings of a certain food you can have. ? Use a measuring cup to measure serving sizes. You could (more content not included)... Normal [facility] Urology Office/Clinic Noteon 06-23-2022 Urology Office/Clinic Note Chief Complaint New patient referred for vasectomy consult [facility] Staff Skyler is here today as a new patient referred for a vasectomy consult, Pt is with 2 children. No trauma to testicles. BP was 175/111, now 121/82. Dysuria: _Denies Incomplete bladder emptying: _Denies Hematuria: _Denies Frequency: _Denies Urgency: _Denies Nocturia: _occ maybe once Stream: _steady stream Leaking: _Denies Post void dripping: _Denies Wearing pads/ Depends: _Denies Urge incontinence: _Denies Stress incontinence: _Denies Incontinence without Sensory Awareness: _Denies Abdominal pain: _Denies Flank pain: _Denies Sexual complaints: _ History of Present Illness Pt is here for referral by Lelia Rivas for Vasectomy Consult Reviewed UA Pt has no associated symptoms, no fever, no chills, no flank pain. I have reviewed the previous health record information and history for this patient from Lelia Rivas Review of Systems ROS - Provider Constitutional: denies weight loss, denies hot flashes. Eyes: denies eye problems. Gastrointestinal: denies nausea, denies vomiting. Cardiovascular: denies chest pain or angina. Integumentary: no dryness Musculoskeletal: denies musculoskeletal symptoms. ENMT: denies otolaryngeal symptoms. Respiratory: no shortness of breath. Heme/Lymph: denies easy bleeding tendency, denies easy bruising tendency. Psychiatric: no confusion, no anxiety. Genitourinary: denies dysuria, denies hematuria, denies discharge, denies urinary frequency, denies urinary hesitancy, denies nocturia, denies incontinence, denies genital sores, denies decreased libido, and denies erectile dysfunction. Physical Exam Vitals & Measurements HR: 88(Peripheral) RR: 16 BP: 121/82 HT: 184.0 cm HT: 184 cm WT: 144.0 kg WT: 144 kg BMI: 42.53 General Appearance: alert, no distress, well nourished, well developed male. Head: normocephalic . Eyes: normal orbit and globe. ENMT: normal examination of external ears. Chest: Lungs CTA, respirations non labored. Cardiovascular: regular rate and rhythm. Abdomen: soft, non distended, no tenderness, no mass or organomegaly, no hernia. Genitourinary: abnormal small scrotum, normal testes, normal urethra, normal epididymis, normal vas deferens/spermatic cord. Flank Pain: none. Bladder: nonpalpable. Penis: normal shaft, normal glans. Lymph Nodes: unremarkable palpation of the cervical area. Skin: warm, dry, no bruising. Psychiatric: cooperative, affect appropriate for age, normal judgement, euthymic mood. Assessment/Plan Will schedule Vasectomy. 1. Vasectomy evaluation (Z30.09: Encounter for other general counseling and advice on contraception) The procedural risks, benefits, details, and treatment alternatives of sterilization have been discussed with the patient today. He understands this procedure is considered permanent, even though vasectomy reversals can be performed. There is no guarantee of successful reversal resulting in , however. Risks discussed include bleeding, infection, failure with in about 1:2500, post-vasectomy syndrome (chronic pain in the testicle or scrotum), possible association with prostate cancer development in the future, and erection problems, among others. Despite these risks, he wishes to proceed. He also understands that he is not considered sterile until a negative semen sample has been received after about 2-3 months after the vasectomy. Full informed consent has been obtained. Will order Local anesthesia. Follow-up With When Contact Information ALBERT BAE, Quincy Nichols, [address] [place] [id number] Business (1) Additional Instructions: Patient Education Vasectomy, Care After Calorie Counting for Weight Loss Yessica Cornejo personally scribed for Dr. Balbuena on 06/23/2022 11:08:10. . Documentation recorded by the scribeYessica, accurately reflects the services(s) I performed and decisions made by me. Authenticated by Dr. Balbuena on 06/23/2022 11:09:43. Problem List/Past Medical History Ongoing BMI 40.0-44.9, adult Vasectomy evaluation Historical No qualifying data Medications multivitamin, Daily Allergies sulfa drugs (Unknown) Social History Tobacco - Low Risk, 06/23/2022 Former smoker, quit more than 30 days ago Tobacco Use:., 06/23/2022 Family History Diabetes mellitus type 2: Mother. Kidney disease: Mother. Primary malignant neoplasm of colon: Father. Immunizations Vaccine Date Status SARS-CoV-2 mRNA (tozinameran 5y-11y) 2019 Recorded Lab Results Ambulatory Point of Care Results Bilirubin Urine Dipstick: Negative (06/23/22 10:35:00) Blood Urine Dipstick: Negative (06/23/22 10:35:00) Glucose Urine Dipstick: Negative (06/23/22 10:35:00) Ketones Urine Dipstick: Negative (06/23/22 10:35:00) Leukocytes Urine Dipstick: Negative (06/23/22 10:35:00) Nitri (more content not included)... Normal [facility] Comment on above: Result Comment: Elec tronically Signed By: Quincy BALBUENA MD\.br\Date and Time Signed: 06/23/22 11:09 EDT\.br\Electronically Co-Signed By: Yessica Burns\.br\Date and Time Co-Signed: 06/23/22 11:08 EDT Lipid Panelon 06-03-2022 Cholesterol [Mass/Vol] 226 mg/dL High NINF - 200 mg/dL [facility] Comment on above: Cholesterol Guidelines: <200 Desirable 200-240 Borderline >240 Undesirable Cholesterol in HDL [Mass/Vol] 40 mg/dL Low 40 - PINF mg/dL [facility] Comment on above: HDL Guidelines: <40 Undesirable 40-59 Borderline >59 Desirable Cholesterol in LDL [Mass/Vol] 143 mg/dL High 0 - 130 mg/dL [facility] Comment on above: LDL Guidelines: <100 Desirable 100-129 Near to/above Desirable 130-159 Borderline >159 Undesirable Direct (measured) LDL and calculated LDL are not interchangeable tests. Cholesterol.total/C holesterol in HDL [Mass ratio] 5.7 {ratio} High NINF - 5 [facility] Interpretation and review of laboratory results Abnormal [facility] Triglyceride [Mass/Vol] 216 mg/dL [facility]dL [facility] Comment on above: Triglyceride Guidelines: <150 Desirable 150-199 Borderline 200-499 High >499 Very high Based on AHA Guidelines for fasting triglyceride, August 2012. [facility] [employer] [facility] Patient Fasting?on 2 Patient Fasting? yes [facility] Vital Signs Date Time Vital Sign Value Performing Clinician Facility 06-07-2023 17:21-0400 Body height 182.9 cm Nathalie Frost MD Work Phone: [facility] 06-07-2023 17:21-0400 Body mass index (BMI) [Ratio] 44.76 kg/m2 Nathalie Frost MD Work Phone: [facility] 06-07-2023 17:21-0400 Body temperature 98.29 [degF] [facility]hlie Frost MD [facility] 06-07-2023 17:21-0400 Body weight 149.69 kg Nathalie Frost MD Work Phone: [facility] 06-07-2023 17:21-0400 Diastolic blood pressure 93 mm[Hg] Nathalie Frost MD Work Phone: [facility] [employer] 06-07-2023 17:21-0400 Heart rate 92 /min Nathalie Frost MD Work Phone: [facility] [employer] 06-07-2023 17:21-0400 Respiratory rate 18 /min Nathalie Frost MD Work Phone: [facility] [employer] 06-07-2023 17:21-0400 SaO2% (BldA) [Mass fraction] 94 % Nathalie Frost MD Work Phone: [facility] [employer] 06-07-2023 17:21-0400 Systolic blood pressure 144 mm[Hg] Nathalie Frost MD Work Phone: [facility] [employer] 06-23-2022 11:00-0400 Diastolic blood pressure 82 mm[Hg] Quincy BALBUENA [facility] 06-23-2022 11:00-0400 Mean blood pressure 95 mm[Hg] Quincy BALBUENA [facility] 06-23-2022 11:00-0400 Systolic blood pressure 121 mm[Hg] Quincy BALBUENA [facility] 06-23-2022 10:31-0400 Blood Pressure Location Quincycedric BALBUENA [facility] 06-23-2022 10:31-0400 Diastolic blood pressure 111 mm[Hg] Quincy BALBUENA [facility] 06-23-2022 10:31-0400 Heart rate 88 /min Quincy BALBUENA [facility] 06-23-2022 10:31-0400 Respiratory rate 16 /min Quincy BALBUENA [facility] 06-23-2022 10:31-0400 Systolic blood pressure 175 mm[Hg] Quincy BALBUENA [facility] Encounters Encounter Date Encounter Type Care Provider Facility Start: 07-29-2023 End: 08-01-2023 ambulatory [facility] Start: 07-24-2023 End: 07-27-2023 ambulatory [facility] Start: 07-23-2023 End: 07-24-2023 ambulatory [facility] Start: 06-15-2023 End: 06-16-2023 ambulatory [facility] Start: 06-15-2023 Encounter for genera l adult medical examination without abnormal findings [place] Start: 06-07-2023 End: 06-07-2023 Emergency department patient visit JUAN ANTONIO Allen [facility] Start: 06-07-2023 End: 06-07-2023 Emergency department patient visit Nathalie Frost MD Work Phone: [facility] Comment on above: Sprain of left ankle , unspecified ligament, initial encounter (Primary Dx) Start: 03-05-2023 End: 03-05-2023 [facility] Start: 06-24-2022 End: 07-16-2022 Pre-admission assessment Quincy BALBUENA [facility] Start: 06-23-2022 End: 06-23-2022 Patient encounter procedure Quincy BALBUENA [facility] Start: 06-03-2022 End: 06-03-2022 Subsequent hospital visit by physician Lelia Garza CNP Work Phone: [facility] Comment on above: Screening for hyperl ipidemia Procedures Date Procedure Procedure Detail Performing Clinician Start: 06-07-2023 Radex ankle complete minimum 3 views Nathalie Frost MD Work Phone: Start: 06-03-2022 Lipid panel Liam rebolledo DO Work Phone: Start: 06-03-2022 PATIENT FASTING? Liam Rivera DO Work Phone: Plan of Treatment Date Care Activity Detail Author Start: 06-03-2027 Lipid panel Lipids [facility] Start: 05-22-2025 Diabetes screen Diabetes screen [facility] ALTH Start: 06-02-2023 Influenza vaccination Flu vaccine (#1) [facility] Start: 05-22-2023 Depression Screen [facility] Start: 08-28-2022 End: 08-28-2022 Patient encounter procedure 08/28/2022 Office Visit Gastroenterology Vani Rosa MD [address] [place], [place] [id number] [facility] Start: 07-03-2022 Influenza vaccination Flu vaccine (#1) [facility] Start: 2022 Lipid [facility] Start: 11-15-2021 COVID-19 Vaccine (4 - Booster for Moderna series) COVID-19 Vaccine (4 - Booster for Moderna series) [facility] Start: 2001 DTaP/Tdap/Td vaccine (1 - Tdap) DTaP/Tdap/Td vaccine (1 - Tdap) [facility] Start: 1983 Varicella vaccine (1 of 2 - 2-dose childhood series) Varicella vaccine (1 of 2 - 2-dose childhood series) [facility] Immunizations Immunization Date Immunization Notes Care Provider Aries luis carlos 09-20-2021 COVID-19, MODERNA BL UE border, Primary or Immunocompromised, (age 12y+), IM, 100 mcg/0.5mL 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 Work Phone: [facility] [employer] Work Phone: 02-14-2021 COVID-19, MODERNA BL UE border, Primary or Immunocompromised, (age 12y+), IM, 100 mcg/0.5mL Lelia Lindergmamatias TRIM CARPENTER - PROJECT DEVELOPMENT LEADER Work Phone: [facility] [employer] Work Phone: 01-16-2021 COVID-19, MODERNA BL UE border, Primary or Immunocompromised, (age 12y+), IM, 100 mcg/0.5mL Lelia Lindergman TRIM CARPENTER - PROJECT DEVELOPMENT LEADER Work Phone: [facility] 11-02-2019 SARS-CoV-2 mRNA (tozinameran 5y-11y) vaccine Quincy ALBERT [facility] Payers Date Payer Category Payer Unknown [id number] 1980 Unknown [id number] 1980 Unknown [id number] 1980 Unknown [id number] 1980 Unknown [id number] 1980 Unknown [id number] 1980 Unknown [id number] Social History Date Type Detail Facility Start: 09-02-2018 End: 06-23-2022 Tobacco smoking status UTIS Ex-smoker [employer] Phone: Start: 11-02-1999 End: 11-02-2004 History of tobacco use Current smoker [employer] Phone: Start: 11-02-1999 End: 11-02-2004 History of tobacco use Cigarette Smoker [employer] Phone: Start: 09-02-2018 Cigarettes smoked current (pack per day) - Reported 0.3 [employer] Phone: Start: 09-02-2018 Tobacco use and exposure Former smokeless tobacco user [employer] Phone: End: 11-02-2004 History of tobacco use Snuff User [employer] Phone: Start: 05-22-2022 End: 06-07-2023 Alcohol intake Current drinker of alcohol (finding) [employer] Phone: Start: 09-02-2018 History SDOH Alcohol Comment 6 drinks per year [employer] Phone: Start: 05-22-2022 History SDOH Financial 5 [employer] Phone: Start: 05-22-2022 End: 06-07-2023 History SDOH Food Worry 1 [employer] Phone: Start: 1980 Sex Assigned At Not on file B ON [employer] Phone: Male [facility] Start: 06-07-2023 History SDOH Alcohol Std Drinks 0 [employer] Start: 1980 Sex Assigned At Male B ON [facility] Functional Status Date Assessment Result Facility 07-11-2022 N/A [facility] 06-23-2022 N/A [facility] Discharge instructions 06-23-2022 Note Date & Type Note Facility 06-23-2022 Hospital Discharg e instructions Patient Education 06/23/2022 11:05:47 Vasectomy, Care After Vasectomy, Care After This sheet gives you information about how to care for yourself after your procedure. Your health care provider may also give you more specific instructions. If you have problems or questions, contact your health care provider. What can I expect after the procedure? After your procedure, it is common to have: Mild pain, swelling, redness, or discomfort in your scrotum. Some blood coming from your incisions or puncture sites for one or two days. Blood in your semen. Follow these instructions at home: Medicines Take ftob-spk-eitjgjh and prescription medicines only as told by your health care provider. Avoid taking NSAIDs such as aspirin and ibuprofen, because these medicines can make bleeding worse. Activity For the first 2 days after surgery, avoid physical activity and exercise that require a lot of energy. Ask your health care provider what activities are safe for you. Do not participate in sports or perform heavy physical labor until your pain has improved, or until your health care provider says it is okay. Do not ejaculate for at least 1 week after the procedure, or as long as directed. You may resume sexual activity 7 10 days after your procedure, or when your health care provider approves. Use a different method of control (contraception) until you have had test results that confirm that there is no sperm in your semen. Scrotal support Use scrotal support, such as a jock strap or underwear with a supportive pouch, as needed for one week after your procedure. If you feel discomfort in your scrotum, you may remove the scrotal support to see if the discomfort is relieved. Sometimes scrotal support can press on the scrotum and cause or worsen discomfort. If your skin gets irritated, you may add some germ-free (sterile), fluffed bandages or a clean washcloth to the scrotal support. General instructions Put ice on the injured area: ?Put ice in a plastic bag. ?Place a towel between your skin and the bag. ?Leave the ice on for 20 minutes, 2 3 times a day. Check your incisions or puncture sites every day for signs of infection. Check for: ?Redness, swelling, or pain. ?Fluid or blood. ?Warmth. ?Pus or a bad smell. Leave stitches (sutures) in place. The sutures will dissolve on their own and do not need to be removed. Keep all follow-up visits as told by your health care provider. This is important because you will need a test to confirm that there is no sperm in your semen. Multiple ejaculations are needed to clear out sperm that were beyond the vasectomy site. You will need one test result showing that there is no sperm in your semen before you can resume unprotected sex. This may take 2 4 months after your procedure. Do not drive for 24 hours if you were given a sedative to help you relax. Contact a health care provider if: You have redness, swelling, or more pain around your incision or puncture site, or in your scrotum area in general. You have bleeding from your incision or puncture site. You have pus or a bad smell coming from your incision or puncture site. You have a fever. Your incision or puncture site opens up. Get help right away if: You develop a rash. You have difficulty breathing. Summary After your procedure it is common to have mild pain, swelling, redness, or discomfort in your scrotum. Avoid physical activity and exercise that requires a lot of energy for the first 2 days after surgery. Put ice on the injured area. Leave the ice on for 20 minutes, 2 3 times a day. Do not drive for 24 hours if you were given a sedative to help you relax. This information is not intended to replace advice given to you by your health care provider. Make sure you discuss any questions you have with your health care provider. Document Released: 05/08/2006 Document Revised: 10/01/2018 Document Reviewed: 01/15/2018 [employer] Patient Education 2020 [employer]. 06/23/2022 11:05:45 Calorie Counting for Weight Loss Calorie Counting for Weight Loss Calories are units of energy. Your body needs a certain amount of calories from food to keep you going throughout the day. When you eat more calories than your body needs, your body stores the extra calories as fat. When you eat fewer calories than your body needs, your body willoughby fat to get the energy it needs. Calorie counting means keeping track of how many calories you eat and drink each day. Calorie counting can be helpful if you need to lose weight. If you make sure to eat fewer calories than your body needs, you should lose weight. Ask your health care provider what a healthy weight is for you. For calorie counting to work, you will need to eat the right number of calories in a day in order to lose a healthy amount of weight per week. A dietitian can help you determine how many calories you need in a day and will give you suggestions on how to reach your calorie goal. A healthy amount of weight to lose per week is usually 1 2 lb (0.5 0.9 kg). This usually means that your daily calorie intake should be reduced by 500 750 calories. Eating 1,200 1,500 calories per day can help most women lose weight. Eating 1,500 1,800 calories per day can help most men lose weight. What is my plan? My goal is to have calories per day. If I have this many calories per day, I should lose around pounds per week. What do I need to know about calorie counting? In order to meet your daily calorie goal, you will need to: Find out how many calories are in each food you would like to eat. Try to do this before you eat. Decide how much of the food you plan to eat. Write down what you ate and how many calories it had. Doing this is called keeping a food log. To successfully lose weight, it is important to balance calorie counting with a healthy lifestyle that includes regular activity. Aim for 150 minutes of moderate exercise (such as walking) or 75 minutes of vigorous exercise (such as running) each week. Where do I find calorie information? The number of calories in a food can be found on a Nutrition Facts label. If a food does not have a Nutrition Facts label, try to look up the calories online or ask your dietitian for help. Remember that calories are listed per serving. If you choose to have more than one serving of a food, you will have to multiply the calories per serving by the amount of servings you plan to eat. For example, the label on a package of bread might say that a serving size is 1 slice and that there are 90 calories in a serving. If you eat 1 slice, you will have eaten 90 calories. If you eat 2 slices, you will have eaten 180 calories. How do I keep a food log? Immediately after each meal, record the following information in your food log: What you ate. Don't forget to include toppings, sauces, and other extras on the food. How much you ate. This can be measured in cups, ounces, or number of items. How many calories each food and drink had. The total number of calories in the meal. Keep your food log near you, such as in a small notebook in your pocket, or use a mobile travis or website. Some programs will calculate calories for you and show you how many calories you have left for the day to meet your goal. What are some calorie counting tips? Use your calories on foods and drinks that will fill you up and not leave you hungry: ?Some examples of foods that fill you up are nuts and nut butters, vegetables, lean proteins, and high-fiber foods like whole grains. High-fiber foods are foods with more than 5 g fiber per serving. ?Drinks such as sodas, specialty coffee drinks, alcohol, and juices have a lot of calories, yet do not fill you up. Eat nutritious foods and avoid empty calories. Empty calories are calories you get from foods or beverages that do not have many vitamins or protein, such as candy, sweets, and soda. It is better to have a nutritious high-calorie food (such as an avocado) than a food with few nutrients (such as a bag of chips). Know how many calories are in the foods you eat most often. This will help you calculate calorie counts faster. Pay attention to calories in drinks. Low-calorie drinks include water and unsweetened drinks. Pay attention to nutrition labels for low fat or fat free foods. These foods sometimes have the same amount of calories or more calories than the full fat versions. They also often have added sugar, starch, or salt, to make up for flavor that was removed with the fat. Find a way of tracking calories that works for you. Get creative. Try different apps or programs if writing down calories does not work for you. What are some portion control tips? Know how many calories are in a serving. This will help you know how many servings of a certain food you can have. Use a measuring cup to measure serving sizes. You could also try weighing out portions on a kitchen scale. With time, you will be able to estimate serving sizes for some foods. Take some time to put servings of different foods on your favorite plates, bowls, and cups so you know what a serving looks like. Try not to eat straight from a bag or box. Doing this can lead to overeating. Put the amount you would like to eat in a cup or on a plate to make sure you are eating the right portion. Use smaller plates, glasses, and bowls to prevent overeating. Try not to multitask (for example, watch TV or use your computer) while eating. If it is time to eat, sit down at a table and enjoy your food. This will help you to know when you are full. It will also help you to be aware of what you are eating and how much you are eating. What are tips for following this plan? Reading food labels Check the calorie count compared to the serving size. The serving size may be smaller than what you are used to eating. Check the source of the calories. Make sure the food you are eating is high in vitamins and protein and low in saturated and trans fats. Shopping Read nutrition labels while you shop. This will help you make healthy decisions before you decide to purchase your food. Make a grocery list and stick to it. Cooking Try to cook your favorite foods in a healthier way. For example, try baking instead of frying. Use low-fat dairy products. Meal planning Use more fruits and vegetables. Half of your plate should be fruits and vegetables. Include lean proteins like poultry and fish. How do I count calories when eating out? Ask for smaller portion sizes. Consider sharing an entree and sides instead of getting your own entree. If you get your own entree, eat only half. Ask for a box at the beginning of your meal and put the rest of your entree in it so you are not tempted to eat it. If calories are listed on the menu, choose the lower calorie options. Choose dishes that include vegetables, fruits, whole grains, low-fat dairy products, and lean protein. Choose items that are boiled, broiled, grilled, or steamed. Stay away from items that are buttered, battered, fried, or served with cream sauce. Items labeled crispy are usually fried, unless stated otherwise. Choose water, low-fat milk, unsweetened iced tea, or other drinks without added sugar. If you want an alcoholic beverage, choose a lower calorie option such as a glass of wine or light beer. Ask for dressings, sauces, and syrups on the side. These are usually high in calories, so you should limit the amount you eat. If you want a salad, choose a garden salad and ask for grilled meats. Avoid extra toppings like bowers, cheese, or fried items. Ask for the dressing on the side, or ask for olive oil and vinegar or lemon to use as dressing. Estimate how many servings of a food you are given. For example, a serving of cooked rice is cup or about the size of half a baseball. Knowing serving sizes will help you be aware of how much food you are eating at restaurants. The list below tells you how big or small some common portion sizes are based on everyday objects: ?1 oz 4 stacked dice. ?3 oz 1 deck of cards. ?1 tsp 1 . ?1 Tbsp a ping-pong ball. ?2 Tbsp 1 ping-pong ball. ? cup baseball. ?1 cup 1 baseball. Summary Calorie counting means keeping track of how many calories you eat and drink each day. If you eat fewer calories than your body needs, you should lose weight. A healthy amount of weight to lose per week is usually 1 2 lb (0.5 0.9 kg). This usually means reducing your daily calorie intake by 500 750 calories. The number of calories in a food can be found on a Nutrition Facts label. If a food does not have a Nutrition Facts label, try to look up the calories online or ask your dietitian for help. Use your calories on foods and drinks that will fill you up, and not on foods and drinks that will leave you hungry. Use smaller plates, glasses, and bowls to prevent overeating. This information is not intended to replace advice given to you by your health care provider. Make sure you discuss any questions you have with your health care provider. Document Released: 10/19/2006 Document Revised: 07/08/2019 Document Reviewed: 09/18/2017 Elsevier Patient Education 2020 [employer]. Follow Up Care 05/28/2022 13:16:49 With:Quincy BALBUENA MD, URL Address: [address] [place] [phone]- Business (1) When: Unknown [facility] Evaluation + Plan note Note Date & Type Note Facility Evaluation + Plan note Future Appointments Appointment Date:08/04/2022 03:15:00 PM Scheduled Provider:Quincy BALBUENA MD Location:[facility] Appointment Type:URO Office Visit [facility] Evaluation note Note Date & Type Note Facility Evaluation note Diagnosis Screening for hyperlipidemia Screening for lipoid disorders documented in this encounter [facility] Work Phone: Evaluation note Note Date & Type Note Facility Evaluation note Diagnosis Sprain of left ankle, unspecified ligament, initial encounter- Primary documented in this encounter [facility] course Narrative Note Date & Type Note Facility Hospital course Narrative No data available for this section [facility] Hospital Discharge instructions Note Date & Type Note Facility Hospital Discharge instructions No data available for this section [facility] Hospital Discharge instructions Attachments Note Date & Type Note Facility Hospital Discharge instructions The following attachments cannot be sent through Care Everywhere.Ankle Sprain (Hungarian)documented in this encounter [facility] Progress note Note Date & Type Note Facility Progress note No data available for this section [facility] Summary Purpose Family History No Family History Records FoundNo Family History Records Found Advance Directives No Advanced Directives Records FoundNo Advanced Directives Records Found Additional Source Comments Care Teams (unrecognized sec tion and content) Automatic Engraver Relationship Specialty Start Date End Date Lelia Rivas, TRIM CARPENTER - PROJECT DEVELOPMENT LEADER [address] [place] [address] PCP - General Family Nurse Practitioner 09/02/18 Automatic Engraver Relationship Specialty Start Date End Date BillkatieJuan Antonio, [address] [place] [address] PCP - General Family Medicine 06/07/23 (unrecognized sect ion and content) No Status Records FoundNo Status Records Found INFORMATION SOURCE (unrecogn ized section and content) DATE CREATED AUTHOR 06/27/[address] [facility] DATE CREATED AUTHOR AUTHOR'S ORGANIZ ATION 08/06/2023 Laurie Mcke[facility] Reason for Visit (unrecogniz ed section and content) Reason Comments Ankle Injury C/o left ankle injur y states rolled his left ankle and heard a pop. FOR RECORDS PERTAINING TO PATIENTS WHO ARE OR HAVE BEEN ENROLLED IN A CHEMICAL DEPENDENCY/SUBSTANCEABUSE PROGRAM, SOME INFORMATION MAY BE OMITTED. This clinical summary was aggregated from multiple sources. Caution should be exercised in using it in the provision of clinical care. This summary normalizes information from multiple sources, and as a consequence, information in this document may materially change the coding, format and clinical context of patient data. In addition, data may be omitted in some cases. CLINICAL DECISIONS SHOULD BE BASED ON THE PRIMARY CLINICAL RECORDS. [facility] [employer] provides no warranty or guarantee of the accuracy or completeness of information in this document.
--- NOTE | 2023-12-01 12:23 | XR_ITS ---
The [address] [address] Patient Name: MAXIMILIANO GABRIEL MRN: [id number] date: 1980 Sex: M Assigned Patient Location: RAD Current Patient Location: [facility] Accession/Order Number: [id number] Exam Date: 12/01/2023 12:18 Report Date: 12/01/2023 12:47 At the request of: DIVYA RICHARDSON Procedure: XR chest 2V EXAM: XR chest 2V HISTORY: Hemoptysis Unspecified R04.2 COMPARISON: None. TECHNIQUE: PA and lateral views of the chest performed. FINDINGS: The trachea is midline. The cardiomediastinal silhouette and hilar shadows are within normal limits. There is no consolidation or infiltrate, pleural effusion or pulmonary vascular congestion. There is a calcified granuloma laterally within the left upper chest. There is no pneumothorax or osseous abnormality. XR/XR chest 2V IMPRESSION: There is no acute cardiopulmonary process. There is a calcified granuloma laterally within the left upper chest. Electronically authenticated by: STACEY RICKETTS Date: 12/01/2023 12:47
[2023-12-01 13:59] LABS: Influenza Virus A Antigen Negative; Influenza Virus B Antigen Negative; Internal Control Within Normal Limits; Respiratory Syncytial Virus Not Detected (NOT DETECTE); SARS-CoV-2 Ag NEGATIVE (NEGATIVE)
[2023-12-01 15:04] LABS: SARS-CoV-2 NAA NOT DETECTED (NOT DETECTE)
== END 2023-12-01 12:13 | disposition home or self-care (01) ==
LOC: RAD 12:12
PROVIDERS: PCP Family Medicine; Visit Provider Family Medicine
DX: R04.2 Hemoptysis (principal)
CPT/HCPCS: 71046; 87420; 87635; 87804; 87811